=== PATIENT | male | born 1965 | race Hispanic/Latino ===

== ENCOUNTER 2024-06-08 09:37 | Inpatient (IN) | payer OTHER ==
[~2024-06-08] VITALS: Ht 167.6 cm; Wt 75.3 kg
[2024-06-08 10:35] LABS: BASOPHILS # (AUTO) 0.2 (0.0-0.1); BASOPHILS % 0.5 % (0.0-1.0); EOSINOPHILS # (AUTO) 0.1 (0.0-0.4); EOSINOPHILS % 0.3 % (0.0-6.0); HEMATOCRIT 35.4 % (38.2-49.6); LYMPHOCYTES # (AUTO) 1.4 (1.0-3.2); LYMPHOCYTES % 4.5 % (18.0-39.1); MEAN CORPUSCULAR HEMOGLOBIN 29.2 pg (28-32); MEAN CORPUSCULAR HGB CONC 33.9 g/dL (31-35); MEAN CORPUSCULAR VOLUME 86.1 fL (81-99); MONOCYTES # (AUTO) 2.3 (0.2-0.8); MONOCYTES % 7.5 % (4.4-11.3); NEUTROPHILS # (AUTO) 25.8 (2.1-6.9); NEUTROPHILS % 82.4 % (38.7-80.0); PLATELET COUNT 289 x10e3/uL (140-360); RED BLOOD COUNT 4.11 x10e6/uL (4.3-5.7); RED CELL DISTRIBUTION WIDTH 14.5 % (11.7-14.4)
[2024-06-08 10:41] LABS: BILIRUBIN,URINE NEGATIVE (NEGATIVE); CLARITY,URINE SL CLOUDY (CLEAR); COLOR,URINE YELLOW (YELLOW); GLUCOSE, URINE NEGATIVE (NEGATIVE); KETONES,URINE NEGATIVE (NEGATIVE); LEUKOCYTE ESTERASE ,URINE SMALL (NEGATIVE); NITRITE,URINE POSITIVE (NEGATIVE); PH,URINE 6 (5 - 7); PROTEIN,URINE DIPSTICK 2+ (NEGATIVE); URINE UROBILINOGEN 0.2 mg/dL (0.2 - 1)
[2024-06-08 10:42] LABS: WHITE BLOOD COUNT 31.25 x10e3/uL (4.8-10.8)
[2024-06-08 10:47] LABS: WBC,URINE (MAN) >50 /HPF (0-5)
[2024-06-08 10:50] LABS: BACTERIA,URINE MANY /HPF; EPITHELIAL CELLS,URINE MODERATE /LPF
[2024-06-08 11:00] LABS: CORONAVIRUS COVID-19 AG NEGATIVE (NEGATIVE); INFLUENZA A AG NEGATIVE (NEGATIVE); INFLUENZA B AG NEGATIVE (NEGATIVE)
[2024-06-08 11:07] LABS: ALBUMIN 2.7 g/dL (3.5-5.0); ALBUMIN/GLOBULIN RATIO 0.6 (0.8-2.0); ANION GAP 15.7 mmol/L (8-16); BILIRUBIN,TOTAL 1.1 mg/dL (0.2-1.2); CALCIUM 9.3 mg/dL (8.4-10.2); CREATININE, SERUM 1.24 mg/dL (0.72-1.25); MAGNESIUM 1.9 MG/DL (1.3-2.1); POTASSIUM 3.7 mmol/L (3.5-5.1); TOTAL PROTEIN 7.1 g/dL (6.5-8.1)
[2024-06-08 11:09] LABS: INR 1.17; PROTHROMBIN TIME 15.6 seconds (11.9-14.5)
[2024-06-08 11:10] LABS: PARTIAL THROMBOPLASTIN TIME 39.3 seconds (23.8-35.5)
[2024-06-08 11:13] LABS: TROPONIN I 0.05 ng/mL (0-0.300)
[2024-06-08] MEDS: SODIUM CHLORIDE 0.9% 1000ML 1,000 ML IV STA ×2 (11:17→11:24)
[2024-06-08] MEDS: Vancomycin IV 1 GM in SODIUM CHLORIDE 0.9% 250ML 250 ML IV ONE (12:18)
[2024-06-08 13:50] LABS: BAND NEUTROPHILS % (MANUAL) 2 %; LYMPHOCYTES % (MANUAL) 6 % (19-48); MONOCYTES % (MANUAL) 6 % (3.4-9.0)
[2024-06-08] MEDS: SODIUM CHLORIDE 0.9% 1000ML 1,000 ML IV SCH (13:50)
[2024-06-08] MEDS: HYDRALAZINE HCL 20 MG/ML VIAL IV PRN (13:50)
[2024-06-08 13:51] LABS: METAMYELOCYTES % (MANUAL) 1 % (0-0); MYELOCYTES % (MANUAL) 3 % (0-0); NEUTROPHILS % (MANUAL) 82 % (40-74)
[2024-06-08 13:52] LABS: PLATELET ESTIMATE ADEQUATE; PLATELET MORPHOLOGY COMMENT NORMAL; RBC MORPHOLOGY COMMENT NORMAL
[2024-06-08] MEDS ORDERED: ACETAMINOPHEN 325 MG TAB PO ONE (14:15)
[2024-06-08] MEDS: ACETAMINOPHEN 325 MG TAB PO ONE (14:37)
[2024-06-08] MEDS: ONDANSETRON HCL INJ 2MG/ML 2ML 2 MG/ML VIAL IV PRN (14:37)
[2024-06-08 17:45] VITALS: PULSE 101; RESP 16; TEMP 98.7
[2024-06-08] MEDS ORDERED: VALSARTAN160 MG PO (18:17)
[2024-06-08] MEDS ORDERED: METOPROLOL TART50 MG PO (18:17)
[2024-06-08] MEDS ORDERED: ATORVASTATIN CA40 MG PO (18:17)
[2024-06-08 18:19] VITALS: BP 156/98; PULSE 111; RESP 18; TEMP 97.9; O2SAT 97
[2024-06-08 19:51] VITALS: BP 123/75; PULSE 100; RESP 20; TEMP 98.1; O2SAT 96
[2024-06-08 19:54] VITALS: BP 123/75; PULSE 100; RESP 20; TEMP 98.1; O2SAT 96
[2024-06-09] VITALS (7 sets, daily range): BP systolic 124–188; BP diastolic 68–105; PULSE 63–102; RESP 17–20; TEMP 97.4–100.9; O2SAT 94–100
[2024-06-09] MEDS: ACETAMINOPHEN 325 MG TAB PO PRN (05:12)
[2024-06-09 05:20] LABS: BASOPHILS # (AUTO) 0.1 (0.0-0.1); BASOPHILS % 0.4 % (0.0-1.0); EOSINOPHILS # (AUTO) 0.1 (0.0-0.4); EOSINOPHILS % 0.6 % (0.0-6.0); HEMOGLOBIN 10.3 g/dL (14.0-18.0); LYMPHOCYTES % 5.6 % (18.0-39.1); MEAN CORPUSCULAR HEMOGLOBIN 29.9 pg (28-32); MEAN CORPUSCULAR HGB CONC 34.3 g/dL (31-35); MONOCYTES # (AUTO) 0.7 (0.2-0.8); MONOCYTES % 3.9 % (4.4-11.3); NEUTROPHILS # (AUTO) 14.9 (2.1-6.9); NEUTROPHILS % 83.1 % (38.7-80.0); PLATELET COUNT 230 x10e3/uL (140-360); RED BLOOD COUNT 3.45 x10e6/uL (4.3-5.7); RED CELL DISTRIBUTION WIDTH 14.7 % (11.7-14.4); WHITE BLOOD COUNT 17.92 x10e3/uL (4.8-10.8)
[2024-06-09 06:01] LABS: ALBUMIN/GLOBULIN RATIO 0.6 (0.8-2.0); ANION GAP 13.5 mmol/L (8-16); BILIRUBIN,TOTAL 1.3 mg/dL (0.2-1.2); CALCIUM 8.4 mg/dL (8.4-10.2); CREATININE, SERUM 1.2 mg/dL (0.72-1.25); POTASSIUM 3.5 mmol/L (3.5-5.1); TOTAL PROTEIN 5.6 g/dL (6.5-8.1)
[2024-06-10] VITALS (7 sets, daily range): BP systolic 172–194; BP diastolic 91–105; PULSE 74–104; RESP 18–23; TEMP 98.2–100.4; O2SAT 95–99
[2024-06-10] MEDS: VALSARTAN 160 MG TAB PO SCH (00:30)
[2024-06-10] MEDS: ATORVASTATIN 40 MG TAB PO SCH (00:30)
[2024-06-10] MEDS: METOPROLOL TARTRATE 25 MG TAB PO SCH (00:31)
[2024-06-10 05:34] LABS: BASOPHILS # (AUTO) 0.1 (0.0-0.1); BASOPHILS % 0.5 % (0.0-1.0); EOSINOPHILS # (AUTO) 0.1 (0.0-0.4); EOSINOPHILS % 0.7 % (0.0-6.0); HEMATOCRIT 33.2 % (38.2-49.6); LYMPHOCYTES # (AUTO) 1.6 (1.0-3.2); LYMPHOCYTES % 8.1 % (18.0-39.1); MEAN CORPUSCULAR HEMOGLOBIN 28.8 pg (28-32); MEAN CORPUSCULAR HGB CONC 33.1 g/dL (31-35); MEAN CORPUSCULAR VOLUME 86.9 fL (81-99); MONOCYTES # (AUTO) 1.3 (0.2-0.8); MONOCYTES % 6.5 % (4.4-11.3); NEUTROPHILS # (AUTO) 15.7 (2.1-6.9); NEUTROPHILS % 76.9 % (38.7-80.0); PLATELET COUNT 254 x10e3/uL (140-360); RED BLOOD COUNT 3.82 x10e6/uL (4.3-5.7); RED CELL DISTRIBUTION WIDTH 14.8 % (11.7-14.4); WHITE BLOOD COUNT 20.36 x10e3/uL (4.8-10.8)
[2024-06-10 05:59] LABS: ANION GAP 13.3 mmol/L (8-16); CALCIUM 8.3 mg/dL (8.4-10.2); CREATININE, SERUM 1.09 mg/dL (0.72-1.25)
[2024-06-10 06:02] LABS: POTASSIUM 3.3 mmol/L (3.5-5.1)
[2024-06-10 07:13] LABS: BAND NEUTROPHILS % (MANUAL) 3 %; EOSINOPHILS % (MANUAL) 1 % (0-7); LYMPHOCYTES % (MANUAL) 6 % (19-48); METAMYELOCYTES % (MANUAL) 3 % (0-0); MONOCYTES % (MANUAL) 6 % (3.4-9.0); MYELOCYTES % (MANUAL) 4 % (0-0); NEUTROPHILS % (MANUAL) 77 % (40-74)
[2024-06-10 07:14] LABS: PLATELET ESTIMATE ADEQUATE; PLATELET MORPHOLOGY COMMENT NORMAL
[2024-06-10] MEDS ORDERED: METFORMIN HCL500 MG PO (11:33)
[2024-06-10] MEDS: CEFTRIAXONE 2 GM in SODIUM CHLORIDE 0.9% 100 ML IV SCH (12:31)
[2024-06-11] VITALS (9 sets, daily range): BP systolic 150–184; BP diastolic 90–111; PULSE 88–106; RESP 18–23; TEMP 98.1–99.1; O2SAT 96–99
[2024-06-11 06:00] LABS: ANION GAP 13.1 mmol/L (8-16); CALCIUM 8.5 mg/dL (8.4-10.2); CREATININE, SERUM 0.95 mg/dL (0.72-1.25)
[2024-06-11 06:01] LABS: POTASSIUM 3.1 mmol/L (3.5-5.1)
[2024-06-11] MEDS: METOPROLOL SUCCINATE 25 MG TAB XL PO SCH (09:44)
[2024-06-11] MEDS: VALSARTAN 160 MG TAB PO SCH (09:44)
[2024-06-11] MEDS ORDERED: MAGNESIUM/ALUMINUM/SIMETHICONE 30 ML UDC PO PRN (10:30)
[2024-06-11] MEDS ORDERED: DOCUSATE SODIUM 100 MG CAP PO PRN (10:30)
[2024-06-11] MEDS ORDERED: MELATONIN 3 MG TAB PO PRN (10:30)
[2024-06-11] MEDS: POTASSIUM CHLORIDE 20 MEQ TAB CR PO STA (11:54)
[2024-06-11 14:54] LABS: BASOPHILS # (AUTO) 0.1 (0.0-0.1); BASOPHILS % 0.3 % (0.0-1.0); EOSINOPHILS # (AUTO) 0.2 (0.0-0.4); EOSINOPHILS % 0.7 % (0.0-6.0); HEMATOCRIT 34.1 % (38.2-49.6); HEMOGLOBIN 11.3 g/dL (14.0-18.0); LYMPHOCYTES # (AUTO) 1.8 (1.0-3.2); LYMPHOCYTES % 8.7 % (18.0-39.1); MEAN CORPUSCULAR HGB CONC 33.1 g/dL (31-35); MEAN CORPUSCULAR VOLUME 87.7 fL (81-99); MONOCYTES # (AUTO) 1.1 (0.2-0.8); MONOCYTES % 5.3 % (4.4-11.3); NEUTROPHILS # (AUTO) 16.1 (2.1-6.9); NEUTROPHILS % 79.2 % (38.7-80.0); PLATELET COUNT 282 x10e3/uL (140-360); RED BLOOD COUNT 3.89 x10e6/uL (4.3-5.7); WHITE BLOOD COUNT 20.41 x10e3/uL (4.8-10.8)
[2024-06-11 15:36] LABS: LYMPHOCYTES % (MANUAL) 9 % (19-48); METAMYELOCYTES % (MANUAL) 1 % (0-0); MONOCYTES % (MANUAL) 7 % (3.4-9.0); MYELOCYTES % (MANUAL) 2 % (0-0); NEUTROPHILS % (MANUAL) 81 % (40-74)
[2024-06-11 15:37] LABS: PLATELET ESTIMATE ADEQUATE; PLATELET MORPHOLOGY COMMENT NORMAL; RBC MORPHOLOGY COMMENT NORMAL
[2024-06-11] MEDS: ENOXAPARIN SOD INJ 40 MG/0.4 ML SYR SC SCH (16:49)
[2024-06-12] VITALS (8 sets, daily range): BP systolic 148–172; BP diastolic 82–98; PULSE 81–92; RESP 16–19; TEMP 98.1–99.1; O2SAT 95–100
[2024-06-12 06:46] LABS: BASOPHILS # (AUTO) 0.1 (0.0-0.1); BASOPHILS % 0.4 % (0.0-1.0); EOSINOPHILS # (AUTO) 0.2 (0.0-0.4); EOSINOPHILS % 0.8 % (0.0-6.0); HEMATOCRIT 34.9 % (38.2-49.6); HEMOGLOBIN 11.7 g/dL (14.0-18.0); LYMPHOCYTES % 9.5 % (18.0-39.1); MEAN CORPUSCULAR HEMOGLOBIN 29.1 pg (28-32); MEAN CORPUSCULAR HGB CONC 33.5 g/dL (31-35); MEAN CORPUSCULAR VOLUME 86.8 fL (81-99); MONOCYTES # (AUTO) 0.9 (0.2-0.8); MONOCYTES % 4.2 % (4.4-11.3); NEUTROPHILS # (AUTO) 16.8 (2.1-6.9); NEUTROPHILS % 80.9 % (38.7-80.0); PLATELET COUNT 324 x10e3/uL (140-360); RED BLOOD COUNT 4.02 x10e6/uL (4.3-5.7); RED CELL DISTRIBUTION WIDTH 14.6 % (11.7-14.4)
[2024-06-12 07:22] LABS: ALBUMIN 2.3 g/dL (3.5-5.0); ALBUMIN/GLOBULIN RATIO 0.5 (0.8-2.0); ANION GAP 12.8 mmol/L (8-16); BILIRUBIN,TOTAL 0.6 mg/dL (0.2-1.2); CALCIUM 8.8 mg/dL (8.4-10.2); CREATININE, SERUM 1.02 mg/dL (0.72-1.25); MAGNESIUM 2.1 MG/DL (1.3-2.1); POTASSIUM 3.8 mmol/L (3.5-5.1); TOTAL PROTEIN 6.7 g/dL (6.5-8.1)
[2024-06-12] MEDS: MULTIVITAMINS/MINERALS TAB PO SCH (09:07)
[2024-06-12] MEDS: AMLODIPINE BESYLATE 5 MG TAB PO SCH ×2 (10:24→23:28)
[2024-06-12] MEDS: METOPROLOL SUCCINATE 50 MG TAB XL PO SCH (20:44)
[2024-06-13] MEDS ORDERED: AMLODIPINE BESY10 MG PO (00:27)
[2024-06-13] MEDS ORDERED: METOPROLOL SUCC50 MG PO (00:27)
[2024-06-13] MEDS ORDERED: METFORMIN HCL850 MG PO (00:27)
[2024-06-13] MEDS ORDERED: VALSARTAN160 MG PO (00:27)
[2024-06-13] MEDS ORDERED: CEFUROXIME250 MG PO (00:27)
[2024-06-13 00:48] VITALS: BP 147/87; PULSE 84; RESP 17; TEMP 99.2; O2SAT 95
[2024-06-13 04:00] VITALS: BP 133/85; PULSE 87; RESP 17; TEMP 98.7; O2SAT 94
[2024-06-13 08:17] VITALS: BP 162/95; PULSE 95; RESP 17; TEMP 97.8; O2SAT 96
[2024-06-13] MEDS: GUAIFENESIN/DEXTROMETHORPHAN LIQD 5 ML UDC PO PRN (08:33)
[2024-06-13 09:29] VITALS: BP 162/95; PULSE 95; RESP 17; TEMP 97.8; O2SAT 96
== END 2024-06-13 09:45 | disposition home or self-care (01) | DRG 872 ==
LOC: ER 09:56 → ERHOLD 11:30 → MED/SURG 13:59
PROVIDERS: ADMIT Internal Medicine; ATTEND Internal Medicine
PROC: 3E0333Z Introduction of Anti-inflammatory into Peripheral Vein, Percutaneous Approach (ICD-10-PCS; principal; 2024-06-08)
DX: A41.51 Sepsis due to Escherichia coli [E. coli] (principal); N39.0 Urinary tract infection, site not specified; Z16.24 Resistance to multiple antibiotics; I16.0 Hypertensive urgency; E88.09 Other disorders of plasma-protein metabolism, not elsewhere classified; K76.89 Other specified diseases of liver; E11.65 Type 2 diabetes mellitus with hyperglycemia; D64.9 Anemia, unspecified; I10 Essential (primary) hypertension; E78.5 Hyperlipidemia, unspecified; R53.81 Other malaise; N29 Other disorders of kidney and ureter in diseases classified elsewhere; Z11.52 Encounter for screening for COVID-19; N20.0 Calculus of kidney; R74.01 Elevation of levels of liver transaminase levels
CPT/HCPCS: 36415; 71045; 74176; 80048; 80053; 81001; 83036; 83605; 83735; 84484; 85025; 85610; 85730; 87040; 87071; 87086; 87186; 87205; 93005; 93306; 99284; J0360; J0696; J1650; J2405; J2543; J7030; J7050

== ENCOUNTER 2024-06-16 12:47 | Inpatient (IN) | payer OTHER ==
[~2024-06-16] VITALS: Ht 160 cm; Wt 79.2 kg
[~2024-06-16 12:47] MED LIST: AMLODIPINE BESY10 MG PO; ATORVASTATIN CA40 MG PO; CEFUROXIME250 MG PO; METFORMIN HCL500 MG PO; METFORMIN HCL850 MG PO; METOPROLOL SUCC50 MG PO; METOPROLOL TART50 MG PO; VALSARTAN160 MG PO
[2024-06-16] MEDS ORDERED: SODIUM CHLORIDE 0.9% 1000ML 1,000 ML ONE (13:32)
[2024-06-16] MEDS ORDERED: SODIUM CHLORIDE 0.9% 250ML 250 ML ONE (13:32)
[2024-06-16 13:42] LABS: BASOPHILS # (AUTO) 0.1 (0.0-0.1); BASOPHILS % 0.2 % (0.0-1.0); HEMATOCRIT 37.3 % (38.2-49.6); HEMOGLOBIN 12.6 g/dL (14.0-18.0); LYMPHOCYTES # (AUTO) 0.7 (1.0-3.2); LYMPHOCYTES % 2.2 % (18.0-39.1); MEAN CORPUSCULAR HEMOGLOBIN 29.4 pg (28-32); MEAN CORPUSCULAR HGB CONC 33.8 g/dL (31-35); MEAN CORPUSCULAR VOLUME 87.1 fL (81-99); MONOCYTES # (AUTO) 1.2 (0.2-0.8); NEUTROPHILS # (AUTO) 27.2 (2.1-6.9); NEUTROPHILS % 92.5 % (38.7-80.0); PLATELET COUNT 691 x10e3/uL (140-360); RED BLOOD COUNT 4.28 x10e6/uL (4.3-5.7); RED CELL DISTRIBUTION WIDTH 14.4 % (11.7-14.4); WHITE BLOOD COUNT 29.36 x10e3/uL (4.8-10.8)
[2024-06-16] MEDS: ACETAMINOPHEN 325 MG TAB PO ONE (13:42)
[2024-06-16] MEDS: SODIUM CHLORIDE 0.9% 1000ML 2,250 ML IV SCH (13:42)
[2024-06-16 13:50] LABS: INR 1.09; PROTHROMBIN TIME 14.8 seconds (11.9-14.5)
[2024-06-16 13:51] LABS: PARTIAL THROMBOPLASTIN TIME 30.2 seconds (23.8-35.5)
[2024-06-16 13:57] LABS: INFLUENZA A AG NEGATIVE (NEGATIVE)
[2024-06-16 13:58] LABS: CORONAVIRUS COVID-19 AG NEGATIVE (NEGATIVE); INFLUENZA B AG NEGATIVE (NEGATIVE)
[2024-06-16 14:01] LABS: ALBUMIN 3.3 g/dL (3.5-5.0); ALBUMIN/GLOBULIN RATIO 0.7 (0.8-2.0); ANION GAP 16.7 mmol/L (8-16); BILIRUBIN,TOTAL 0.6 mg/dL (0.2-1.2); CALCIUM 9.6 mg/dL (8.4-10.2); CREATININE, SERUM 1.53 mg/dL (0.72-1.25); POTASSIUM 4.7 mmol/L (3.5-5.1); TOTAL PROTEIN 7.9 g/dL (6.5-8.1)
[2024-06-16 14:19] LABS: BILIRUBIN,URINE NEGATIVE (NEGATIVE); CLARITY,URINE TURBID (CLEAR); COLOR,URINE YELLOW (YELLOW); GLUCOSE, URINE NEGATIVE (NEGATIVE); KETONES,URINE NEGATIVE (NEGATIVE); LEUKOCYTE ESTERASE ,URINE TRACE (NEGATIVE); NITRITE,URINE NEGATIVE (NEGATIVE); PH,URINE 5.5 (5 - 7); PROTEIN,URINE DIPSTICK 1+ (NEGATIVE); URINE UROBILINOGEN 0.2 mg/dL (0.2 - 1)
[2024-06-16 14:22] LABS: BACTERIA,URINE MANY /HPF; EPITHELIAL CELLS,URINE MODERATE /LPF; RBC,URINE 21-50 /HPF (0-5); WBC,URINE (MAN) 21-50 /HPF (0-5)
[2024-06-16] MEDS ORDERED: ONDANSETRON HCL INJ 2MG/ML 2ML 2 MG/ML VIAL IV PRN (14:30)
[2024-06-16 15:31] LABS: BAND NEUTROPHILS % (MANUAL) 1 %; BASOPHILS % (MANUAL) 1 % (0-1.5); LYMPHOCYTES % (MANUAL) 2 % (19-48); MONOCYTES % (MANUAL) 2 % (3.4-9.0); NEUTROPHILS % (MANUAL) 94 % (40-74); PLATELET ESTIMATE MODERATELY INCREASED; PLATELET MORPHOLOGY COMMENT NORMAL; RBC MORPHOLOGY COMMENT NORMAL
[2024-06-16] MEDS: SODIUM CHLORIDE 0.9% 1000ML 1,000 ML IV SCH ×2 (16:07→19:31)
[2024-06-16 20:34] VITALS: PULSE 67; RESP 20; TEMP 98.7
[2024-06-17] VITALS (8 sets, daily range): BP systolic 141–168; BP diastolic 72–94; PULSE 81–105; RESP 18–20; TEMP 98.5–100.3; O2SAT 94–99
[2024-06-17 04:59] LABS: BASOPHILS % 0.2 % (0.0-1.0); EOSINOPHILS % 0.1 % (0.0-6.0); HEMATOCRIT 34.8 % (38.2-49.6); HEMOGLOBIN 11.6 g/dL (14.0-18.0); LYMPHOCYTES # (AUTO) 1.4 (1.0-3.2); LYMPHOCYTES % 6.4 % (18.0-39.1); MEAN CORPUSCULAR HGB CONC 33.3 g/dL (31-35); MONOCYTES # (AUTO) 0.7 (0.2-0.8); MONOCYTES % 3.3 % (4.4-11.3); NEUTROPHILS # (AUTO) 18.9 (2.1-6.9); NEUTROPHILS % 89.2 % (38.7-80.0); PLATELET COUNT 621 x10e3/uL (140-360); RED CELL DISTRIBUTION WIDTH 14.5 % (11.7-14.4); WHITE BLOOD COUNT 21.22 x10e3/uL (4.8-10.8)
[2024-06-17 06:15] LABS: ALBUMIN/GLOBULIN RATIO 0.7 (0.8-2.0); ANION GAP 14.1 mmol/L (8-16); BILIRUBIN,TOTAL 0.8 mg/dL (0.2-1.2); CALCIUM 8.9 mg/dL (8.4-10.2); CREATININE, SERUM 1.1 mg/dL (0.72-1.25); POTASSIUM 4.1 mmol/L (3.5-5.1); TOTAL PROTEIN 7.3 g/dL (6.5-8.1)
[2024-06-17] MEDS: ACETAMINOPHEN 325 MG TAB PO PRN (17:22)
[2024-06-17 19:30] LABS: CREATININE,URINE RANDOM 51.56 mg/dL (63-166)
[2024-06-17] MEDS: MEROPENEM 1 GM in SODIUM CHLORIDE 0.9% 100 ML IV SCH (22:41)
[2024-06-18 04:00] VITALS: BP 158/90; PULSE 84; RESP 18; TEMP 99.3; O2SAT 94
[2024-06-18] MEDS: SODIUM CHLORIDE 0.9% 1000ML 1,000 ML IV SCH (05:18)
[2024-06-18 05:41] LABS: ANION GAP 13.8 mmol/L (8-16); CREATININE, SERUM 0.97 mg/dL (0.72-1.25); POTASSIUM 3.8 mmol/L (3.5-5.1)
[2024-06-18 07:46] VITALS: BP 149/89; PULSE 78; RESP 18; TEMP 98.8; O2SAT 95
[2024-06-18 10:30] VITALS: BP 149/89; PULSE 78; RESP 18; TEMP 98.8; O2SAT 95
[2024-06-18 12:46] VITALS: BP 142/89; PULSE 82; RESP 18; TEMP 98.6; O2SAT 98
[2024-06-18 17:22] VITALS: BP 158/94; PULSE 82; RESP 18; TEMP 97.8; O2SAT 96
[2024-06-19] VITALS (7 sets, daily range): BP systolic 138–161; BP diastolic 87–99; PULSE 70–93; RESP 17–20; TEMP 97.8–98.5; O2SAT 95–98
[2024-06-19] MEDS: AMLODIPINE BESYLATE 10 MG TAB PO SCH (14:07)
[2024-06-19] MEDS: VALSARTAN 160 MG TAB PO SCH (18:16)
[2024-06-19] MEDS: ATORVASTATIN 40 MG TAB PO SCH (22:52)
[2024-06-20] VITALS (7 sets, daily range): BP systolic 129–144; BP diastolic 82–95; PULSE 70–84; RESP 18–20; TEMP 97.6–98.1; O2SAT 97–100
[2024-06-20 06:11] LABS: BASOPHILS # (AUTO) 0.1 (0.0-0.1); BASOPHILS % 0.6 % (0.0-1.0); EOSINOPHILS # (AUTO) 0.1 (0.0-0.4); EOSINOPHILS % 1.8 % (0.0-6.0); HEMATOCRIT 36.3 % (38.2-49.6); HEMOGLOBIN 11.7 g/dL (14.0-18.0); LYMPHOCYTES # (AUTO) 2.2 (1.0-3.2); LYMPHOCYTES % 28.5 % (18.0-39.1); MEAN CORPUSCULAR HEMOGLOBIN 28.6 pg (28-32); MEAN CORPUSCULAR HGB CONC 32.2 g/dL (31-35); MEAN CORPUSCULAR VOLUME 88.8 fL (81-99); MONOCYTES # (AUTO) 0.6 (0.2-0.8); MONOCYTES % 7.8 % (4.4-11.3); NEUTROPHILS # (AUTO) 4.7 (2.1-6.9); NEUTROPHILS % 60.4 % (38.7-80.0); PLATELET COUNT 596 x10e3/uL (140-360); RED BLOOD COUNT 4.09 x10e6/uL (4.3-5.7); RED CELL DISTRIBUTION WIDTH 13.8 % (11.7-14.4); WHITE BLOOD COUNT 7.85 x10e3/uL (4.8-10.8)
[2024-06-20 07:22] LABS: ANION GAP 13.5 mmol/L (8-16); CALCIUM 9.3 mg/dL (8.4-10.2); CREATININE, SERUM 0.97 mg/dL (0.72-1.25); POTASSIUM 4.5 mmol/L (3.5-5.1)
[2024-06-20] MEDS: INSULIN LISPRO 100 UNIT/1 ML 3ML VIAL SQ SCH (16:18)
[2024-06-21] VITALS: BP 141/81; PULSE 76; RESP 19; TEMP 98; O2SAT 100
[2024-06-21 04:00] VITALS: BP 142/87; PULSE 77; RESP 18; TEMP 97.7; O2SAT 98
[2024-06-21 07:58] LABS: BASOPHILS # (AUTO) 0.1 (0.0-0.1); BASOPHILS % 0.7 % (0.0-1.0); EOSINOPHILS # (AUTO) 0.1 (0.0-0.4); EOSINOPHILS % 1.3 % (0.0-6.0); HEMATOCRIT 37.6 % (38.2-49.6); HEMOGLOBIN 12.2 g/dL (14.0-18.0); LYMPHOCYTES # (AUTO) 2.3 (1.0-3.2); LYMPHOCYTES % 29.8 % (18.0-39.1); MEAN CORPUSCULAR HEMOGLOBIN 28.7 pg (28-32); MEAN CORPUSCULAR HGB CONC 32.4 g/dL (31-35); MEAN CORPUSCULAR VOLUME 88.5 fL (81-99); MONOCYTES # (AUTO) 0.6 (0.2-0.8); MONOCYTES % 7.6 % (4.4-11.3); NEUTROPHILS # (AUTO) 4.5 (2.1-6.9); NEUTROPHILS % 59.3 % (38.7-80.0); PLATELET COUNT 558 x10e3/uL (140-360); RED BLOOD COUNT 4.25 x10e6/uL (4.3-5.7); RED CELL DISTRIBUTION WIDTH 13.7 % (11.7-14.4); WHITE BLOOD COUNT 7.65 x10e3/uL (4.8-10.8)
[2024-06-21 08:26] VITALS: BP 125/84; PULSE 65; RESP 18; TEMP 98; O2SAT 97
[2024-06-21 08:32] LABS: ANION GAP 12.2 mmol/L (8-16); CALCIUM 9.3 mg/dL (8.4-10.2); CREATININE, SERUM 0.9 mg/dL (0.72-1.25); POTASSIUM 4.2 mmol/L (3.5-5.1)
[2024-06-21] MEDS ORDERED: CEFUROXIME250 MG PO (09:20)
[2024-06-21 10:04] VITALS: BP 125/84; PULSE 65; RESP 18; TEMP 98; O2SAT 97
== END 2024-06-21 11:05 | disposition home or self-care (01) | DRG 872 ==
LOC: ER 12:51 → ERHOLD 14:26 → MED/SURG 23:31 → MED/SURG3 06-19 20:49
PROVIDERS: ADMIT Internal Medicine; ATTEND Internal Medicine
PROC: 3E0333Z Introduction of Anti-inflammatory into Peripheral Vein, Percutaneous Approach (ICD-10-PCS; principal; 2024-06-16)
DX: A41.51 Sepsis due to Escherichia coli [E. coli] (principal); E87.20 Acidosis, unspecified; N39.0 Urinary tract infection, site not specified; N17.9 Acute kidney failure, unspecified; J98.11 Atelectasis; N12 Tubulo-interstitial nephritis, not specified as acute or chronic; E87.1 Hypo-osmolality and hyponatremia; Z16.39 Resistance to other specified antimicrobial drug; R65.20 Severe sepsis without septic shock; I10 Essential (primary) hypertension; Z11.52 Encounter for screening for COVID-19; E78.5 Hyperlipidemia, unspecified; E83.59 Other disorders of calcium metabolism; N29 Other disorders of kidney and ureter in diseases classified elsewhere; D75.839 Thrombocytosis, unspecified; N28.1 Cyst of kidney, acquired; R31.29 Other microscopic hematuria; R74.01 Elevation of levels of liver transaminase levels; E88.09 Other disorders of plasma-protein metabolism, not elsewhere classified; R53.81 Other malaise; E66.9 Obesity, unspecified; Z68.30 Body mass index [BMI] 30.0-30.9, adult; Z79.84 Long term (current) use of oral hypoglycemic drugs; Z87.440 Personal history of urinary (tract) infections
CPT/HCPCS: 36415; 71045; 74176; 80048; 80053; 81001; 82570; 82948; 83605; 84156; 85025; 85610; 85730; 87040; 87086; 93005; 99284; J0696; J2185; J7030; J7050

== ENCOUNTER → 2024-08-13 | Day surgery (SDC) | payer OTHER ==
[~2024-08-13] MED LIST changes: +FENTANYL CITRATE/PF 100MCG/2 ML INJ ONE; +LIDOCAINE HCL 2% LOCAL INJ 5 ML SDV VIAL INJ ONE; +METOCLOPRAMIDE HCL 10 MG/2ML VIAL ONE; +METOPROLOL SUCC25 MG PO; +ONDANSETRON HCL INJ 2MG/ML 2ML 2 MG/ML VIAL ONE; +PROPOFOL IV EMULSION 10 MG/ML 20 ML VIAL ONE
[2024-08-13] MEDS: SODIUM CHLORIDE 0.9% 1000ML 1,000 ML ONE (07:31)
[2024-08-13] MEDS: CEFTRIAXONE 1 GM VIAL ONE (07:32)
[2024-08-13 08:06] LABS: ANION GAP 15.1 mmol/L (8-16); CALCIUM 9.8 mg/dL (8.4-10.2); CREATININE, SERUM 1.24 mg/dL (0.72-1.25); POTASSIUM 4.1 mmol/L (3.5-5.1)
[2024-08-13 08:46] VITALS: TEMP 97.9
[2024-08-13 09:35] VITALS: BP 156/94; PULSE 55; RESP 16; O2SAT 97
== END | disposition home or self-care (01) ==
LOC: OR 07:03
PROVIDERS: ATTEND Urology
DX: N20.0 Calculus of kidney (principal); N28.1 Cyst of kidney, acquired; N39.0 Urinary tract infection, site not specified; E11.9 Type 2 diabetes mellitus without complications; I10 Essential (primary) hypertension; K21.9 Gastro-esophageal reflux disease without esophagitis; Z01.818 Encounter for other preprocedural examination; Z79.84 Long term (current) use of oral hypoglycemic drugs; Z79.899 Other long term (current) drug therapy
CPT/HCPCS: 36415; 50590; 74018; 80048; 82948; J0696; J2003; J2405; J2704; J2765; J3010; J7030

== ENCOUNTER → 2024-08-27 | Day surgery (SDC) | payer OTHER ==
[~2024-08-27] MED LIST changes: -METOCLOPRAMIDE HCL 10 MG/2ML VIAL ONE; +SEVOFLURANE INHAL SOLN 250 ML PEN BTL ONE
[2024-08-27] MEDS: LACTATED RINGER'S 1,000 ML ONE (06:09)
[2024-08-27] MEDS: CEFTRIAXONE 1 GM VIAL ONE (06:09)
[2024-08-27] MEDS: HYDRALAZINE HCL 20 MG/ML VIAL ONE (08:16)
[2024-08-27 09:00] VITALS: BP 158/89; PULSE 56; RESP 16; O2SAT 99
== END | disposition home or self-care (01) ==
LOC: OR 05:20
PROVIDERS: ATTEND Urology
DX: N20.0 Calculus of kidney (principal); E11.9 Type 2 diabetes mellitus without complications; I10 Essential (primary) hypertension; K21.9 Gastro-esophageal reflux disease without esophagitis; Z01.810 Encounter for preprocedural cardiovascular examination; Z79.84 Long term (current) use of oral hypoglycemic drugs; Z79.899 Other long term (current) drug therapy
CPT/HCPCS: 36415; 50590; 74018; 82948; 93005; J0360; J0696; J2003; J2405; J2704; J3010; J7121